=== PATIENT | male | born 1955 | race Caucasian/White ===

== ENCOUNTER 2023-05-17 16:22 | Emergency (ER) | payer OTHER, SELFPAY ==
[2023-05-17] VITALS (7 sets, daily range): BP systolic 124–148; BP diastolic 78–94; PULSE 66–99; RESP 16–18; TEMP 36.6–36.8; O2SAT 97–100
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
[2023-05-17] MEDS: LIDOCAINE 5% PATCH 1 PATCH TRANSDERM (19:35)
[2023-05-17] MEDS: oxyCODONE/ACETAMINOPHEN (*CRX) 5-325 MG TABLET 1 TABLET PO (19:35)
[2023-05-17 19:47] LABS: Basophils Absolute Auto 0.1 K/mm3 (0.0-0.1); Basophils Percent Auto 0.4 % (0.2-1.2); Eosinophils Absolute Auto 0.1 K/mm3 (0-0.3); Eosinophils Percent Auto 0.4 % (0-4.4); Hematocrit 38.6 % (42.0-52.0); Hemoglobin 11.9 g/dL (14.0-18.0); Immature Granulocyte Absolute 0.11 K/mm3 (0.00-0.031); Immature Granulocyte Percent A 0.8 % (0-0.5); Lymphocytes Absolute Auto 1.11 K/mm3 (0.9-3.2); Lymphocytes Percent Auto 7.8 % (18.3-44.2); Mean Corpuscular HGB Conc 30.8 g/dl (32-36); Mean Corpuscular Hemoglobin 26.6 pg (26-34); Mean Corpuscular Volume 86.4 fl (80-100); Mean Platelet Volume 7.8 fl (7.4-10.4); Monocytes Absolute Auto 1.3 K/mm3 (0.1-0.6); Monocytes Percent Auto 9.2 % (2.6-8.5); Neutrophils Absolute Auto 11.6 K/mm3 (1.3-6.7); Neutrophils Percent Auto 81.4 % (45.5-73.1); Platelet Count Result 357 k/mm3 (150-375); Red Blood Count 4.47 M/mm3 (4.6-6.20); Red Cell Distribution Width 15.7 % (11.5-14.5); White Blood Count 14.2 K/mm3 (4.5-10.0)
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
[2023-05-17 19:57] LABS: Anion Gap 9 mmol/L (8-16); Blood Urea Nitrogen 5 mg/dL (9-20); Calcium 8.6 mg/dL (8.4-10.2); Carbon Dioxide 27 mmol/L (22-30); Chloride 96 mmol/L (98-107); Estimated CRCL calculation 96 ml/min; Estimated Glomerular Filt Rate > 60; Glucose 106 mg/dL (65-110); Potassium 3.9 mmol/L (3.4-5.0); Sodium 132 mmol/L (137-145)
--- NOTE | 2023-05-17 20:22 | PC.NURSE ---
Pt in imaging at this time.
[2023-05-17] MEDS: carBAMazepine 200 MG TABLET 600 MG PO (23:03)
[2023-05-17] MEDS: SODIUM CHLORIDE 0.9% IV 1,000 ML 999 ML IV CONT (23:46)
[2023-05-17] MEDS: ONDANSETRON INJ 4 MG/2 ML VIAL IV PUSH (23:46)
[2023-05-18 00:33] VITALS: BP 133/88; PULSE 79; RESP 20; O2SAT 100
== END 2023-05-18 01:07 | disposition short-term general hospital (02) ==
PROVIDERS: Emergency Provider Preventive Medicine Aerospace Medicine
DX: S27.2XXA Traumatic hemopneumothorax, initial encounter (principal); S22.41XA Multiple fractures of ribs, right side, initial encounter for closed fracture; S27.321A Contusion of lung, unilateral, initial encounter; G40.909 Epilepsy, unspecified, not intractable, without status epilepticus; K40.90 Unilateral inguinal hernia, without obstruction or gangrene, not specified as recurrent; K44.9 Diaphragmatic hernia without obstruction or gangrene; K80.20 Calculus of gallbladder without cholecystitis without obstruction; R93.41 Abnormal radiologic findings on diagnostic imaging of renal pelvis, ureter, or bladder; V49.40XA Driver injured in collision with unspecified motor vehicles in traffic accident, initial encounter
CPT/HCPCS: 36415; 70450; 71100; 71260; 72125; 72129; 72132; 74177; 80048; 85025; 96361; 96374; 99285; A9270; J2405; J7030; Q9967